=== PATIENT | male | born 1980 | race Caucasian/White ===

== ENCOUNTER 2020-05-10 06:44 | Observation (INO) ==
[2020-05-10] MEDS ORDERED: ONDANSETRON HCL/PF 2 MG/ML VIAL IV ONE ×2 (07:09→07:56)
--- NOTE | 2020-05-10 07:13 | ERNOTE ---
<William Loco - Last Filed: 05/10/20 07:56> Medical Problem HPI - General Chief Complaint: General Assessment Time Seen by Provider: 05/10/20 07:00 Source: patient, family - Exam Limitations: no limitations - Immun/Allergies/Home Medications Immunizations: IMMUNIZATION HX Immunizations Up to Date Yes History of Influenza Vaccine No Hx Pneumococcal Vaccination No Allergies/Adverse Reactions: Allergies morphine Allergy (Severe, Verified 05/10/20 06:53) Shortness of Breath Home Medications: HOME MEDICATIONS NK 05/10/20 [Last Taken Unknown] - History of Present History Narrative: Patient presents with confusion this morning. His states that she tried to wake him up and stated he just wanted to go home. Patient states he has been having a Crohn's flare including abdominal pain, nausea /vomiting, diarrhea and bloody diarrhea for about a month. He does not have insurance and moved here approximately 8 months ago and has not had a physician since he moved here. Patient has used Tagamet, [id number] Gas-X, Tylenol and ibuprofen none of which seemed to help and Tylenol and ibuprofen seem to make it worse. For the past couple of days he has not been able to hold anything down. Timing: getting worse Severity: moderate, severe Modifying Factors - (Worsens): Present: eating Review of Systems - Review of Systems Constitutional: Present: chills, fatigue, malaise. Absent: fever EYE: Absent: vision changes ENT: Absent: nose congestion, nasal drainage Respiratory: Absent: shortness of breath, cough Cardiology: Absent: chest pain Gastrointestinal/Abdominal: Present: See HPI Genitourinary: Present: decreased urinary output Musculoskeletal: Absent: back pain, neck pain Skin: Absent: rash Neurological: Present: dizziness/light-headedness. Absent: numbness, tingling Endocrine: Present: excessive sweating, flushing Medical History (Last Reviewed 05/10/20 @ 07:12 by William Loco DO) Crohn's disease Laceration of arm, left, complicated Surgical History: Surgical History (Last Reviewed 05/10/20 @ 07:12 by William Loco DO) History of cholecystectomy Family History: Family History (Last Reviewed 05/10/20 @ 07:12 by William Loco DO) Other No pertinent family history in first degree relatives Social History: (Last Reviewed 05/10/20 @ 07:12 by William Loco DO) Tobacco: Smoking Status: Never smoker Alcohol: alcohol intake frequency: holiday/special occasion Substance Use: substance use type: does not use Physical Exam - Physical Exam General Appearance: Present: wd/wn, alert, mild distress Head Exam: Present: normal inspection, no evidence of injury Neck: Present: normal inspection, nontender, supple Respiratory: Present: no respiratory distress, no accessory muscle use, chest nontender, lungs clear Cardiovascular/Chest: Present: regular rate, rhythm, no murmur Gastrointestinal/Abdominal: Present: nondistended, soft, tenderness - Bilateral lower quadrants, abnormal bowel sounds - Mildly hyperactive. Absent: guarding, rebound Back Exam: Present: normal inspection, normal range of motion Extremity Exam: Present: normal inspection, normal range of motion, no edema Neurological Exam: Present: alert, oriented, no motor/sensory deficits Skin Exam: Present: normal color, warm/dry Lymphatic Exam: Present: no adenopathy Progress - Results and Orders Patient's Lab Results:: I have reviewed the patient's lab results. - Vital Signs Patient's Vital Signs:: I have reviewed the patient's vital signs. Vital Signs: Vital Signs 05/10/20 06:50 Temperature 36.6 C Pulse Rate 77 Respiratory Rate 16 Blood Pressure 132/90 H O2 Sat by Pulse Oximetry 97 - Progress/Reassessment Chief Complaint: General Assessment - Transfer of Care Physician Sign Out: William Loco Receiving Physician: Emerson Soto Pending Results: CT/MRI results Expected Disposition: Admit Departure Clinical Impression: Colitis, infectious Crohn's colitis Qualifiers: Digestive disease complication type: with rectal bleeding Qualified Code(s): K50.111 - Crohn's disease of large intestine with rectal bleeding - Departure Disposition: Short Term Hospital Inpatient Condition: Fair <Emerson Soto - Last Filed: 05/10/20 11:20> Medical Problem HPI - Narrative Date of Service: 05/10/20 - Immun/Allergies/Home Medications Immunizations: IMMUNIZATION HX Immunizations Up to Date Yes History of Influenza Vaccine No Hx Pneumococcal Vaccination No Medical History (Last Reviewed 05/10/20 @ 07:12 by William Loco DO) Crohn's disease Laceration of arm, left, complicated Surgical History: Surgical History (Last Reviewed 05/10/20 @ 07:12 by William Loco DO) History of cholecystectomy Family History: Family History (Last Reviewed 05/10/20 @ 07:12 by William Loco DO) Other No pertinent family history in first degree relatives Social History: (Last Reviewed 05/10/20 @ 07:12 by William Loco DO) Tobacco: Smoking Status: Never smoker Alcohol: alcohol intake frequency: holiday/special occasion Substance Use: substance use type: does not use Progress - Vital Signs Vital Signs: Vital Signs 05/10/20 06:50 05/10/20 07:30 Temperature 36.6 C Pulse Rate 77 76 Respiratory Rate 16 14 Blood Pressure 132/90 H 124/76 O2 Sat by Pulse Oximetry 97 97 - X-Ray X-Ray #1 X-Ray: abdomen Interpretation: Discd w/ radiologist X-ray Comments: No acute findings - CT/Ultrasound CT/Ultrasound Narrative: CT shows inflammatory bowel disease with some infectious component possible - Progress/Reassessment Progress Note-Subjective: 05/10/20 08:05 Patient remains nauseous and in pain has been medicated awaiting CAT scan is in the progress of drinking contrast patient has not been seen for his Crohn's in 2 years due to economic reasons Plan - Plan Plan: Considering the patient's white count of 15,000 and the findings of CAT scan will admit for antibiotic coverage and pain medication Patient to be admitted to Dr Nguyễn of service
[2020-05-10 07:27] LABS: Hematocrit 41.2 % (42.0-52.0); Hemoglobin 13.8 gm/dL (13.5-18.0); Mean Cell Volume 90.4 fl (78-100); Mean Corpuscular Hemoglobin 30.3 pg (27-31); Mean Corpuscular Hgb Conc 33.5 g/dl (32-36); Mean Platelet Volume 8.9 fl (8-11.3); Neutrophil # 12.5 K/mm3 (1.3-6.0); Neutrophil % 82.9 % (42-75.0); Platelet Count 357 K/mm3 (150-450); Red Blood Count 4.56 M/mm3 (4.7-6.0); Red Cell Distribution Width 12.8 % (11.5-14.0)
[2020-05-10 07:42] LABS: Albumin * 3.5 gm/dl (3.4-5.0); Anion Gap 12.2 mmol/L (6.8-13.8); BUN/Creatinine Ratio 15.9 (9.0-21.6); Bilirubin, Total 0.2 mg/dL (0.0-1.1); Ca. Corrected For Albumin 9.4 mg/dL (8.4-10.2); Calcium * 9.3 mg/dL (7.9-10.9); Carbon Dioxide 26.6 mmol/L (24-32.6); Potassium 3.8 mmol/L (3.4-4.6); Total Protein 7.4 gm/dL (6.2-8.2)
[2020-05-10] MEDS ORDERED: DIATRIZOATE MEGLUMINE, SODIUM 30 ML BTL PO ONE (07:43)
[2020-05-10] MEDS ORDERED: HYDROmorphone HCL 1 MG/ML DISP.SYRIN IV ONE ×2 (07:56→10:56)
[2020-05-10] MEDS ORDERED: METHYLPREDNISOLONE SOD SUCC/PF 125 MG/2 ML VIAL IV ONE (08:15)
[2020-05-10] MEDS ORDERED: metroNIDAZOLE/SODIUM CHLORIDE 500 MG/100 ML BAG IV SCH ×2 (11:00→19:00)
[2020-05-10] MEDS ORDERED: CIPROFLOXACIN IN 5 % DEXTROSE 400 MG/200 ML BAG IV SCH (11:00)
--- NOTE | 2020-05-10 13:16 | HP ---
Chief Complaint - Chief Complaint Date of Service: 05/10/20 Time of Service: 11:41 Chief Complaint: Abdominal pain, blood in stool, nausea vomiting x1 month History of Present Illness: 39-year-old male with past medical history of Crohn's disease presents with complaints of lower abdominal cramping, nausea, vomiting, decreased appetite, bloody stools for the past 1 month that has been progressively worsening. He does not have a primary care physician recently moved here from [place]. He has not had a physician for about 3 years due to insurance issues. He has had Crohn's disease for the past 15 years and has never had a flare this bad. In the emergency department he was found to have stable vitals, WBCs of 15,000, elevated alk phos at 195 elevated ALT at 76, CT abdomen pelvis showed colitis of the left hemicolon, ileus and hepatomegaly, no bowel obstruction or free air. He was started on Flagyl and Cipro in the emergency room. He also received a dose of Solu-Medrol 125 mg IV. He is being admitted for exacerbation of Crohn's colitis. Medical History (Last Reviewed 05/10/20 @ 13:34 by Roly See RN) Crohn's disease Laceration of arm, left, complicated Surgical History: Surgical History (Last Reviewed 05/10/20 @ 13:34 by Roly See RN) History of cholecystectomy Family History: Family History (Last Reviewed 05/10/20 @ 13:34 by Roly See RN) Other No pertinent family history in first degree relatives Social History: (Last Reviewed 05/10/20 @ 13:35 by Roly See, RN) Tobacco: Smoking Status: Never smoker Alcohol: alcohol intake frequency: holiday/special occasion Substance Use: substance use type: does not use Review Of Systems (GEN) - Review of Systems Generalized/Overall Review: Absent: Chills, Fever Respiratory: Absent: Shortness of Breath Cardiac: Absent: Chest Pain Abdominal: Present: Nausea, Vomiting, Abdominal Pain - Lower abdomen, Bright blood from rectum Misc: All systems neg except as marked Immunizations: IMMUNIZATION HX Immunizations Up to Date Yes History of Influenza Vaccine No Hx Pneumococcal Vaccination No Allergies/Adverse Reactions: Allergies Allergy/AdvReac Type Severity Reaction Status Date / Time morphine Allergy Severe Shortness Verified 05/10/20 06:53 of Breath Home Medications: HOME MEDICATIONS Cimetidine [Tagamet Hb] 2 tab PO 1700 05/10/20 [Last Taken 05/09/20 17:00] Multivitamin [Poly-Vitamin] 2 ea PO BID 05/10/20 [Last Taken 05/09/20 09:30] Simethicone [Gas-X] 2 tab PO DAILY 05/10/20 [Last Taken 05/09/20 09:30] Exam - Exam Vital Signs: Vital Signs - Last Taken Temp 36.6 C 05/10/20 12:40 Pulse 68 05/10/20 12:40 Resp 14 05/10/20 12:40 BP 108/58 05/10/20 12:40 Pulse Ox 96 05/10/20 12:40 Constitutional: Present: Alert, Cooperative, Well developed, Well nourished, No distress ENT Exam: Present: hearing grossly normal, moist mucous membranes Eye Exam: bilateral eye: normal inspection, PERRL, EOMI Neck: Present: non-tender, supple. Absent: lymphadenopathy (R), lymphadenopathy (L) Back Exam: Present: no CVA tenderness, no vertebral tenderness Respiratory: Present: lungs clear, no respiratory distress, no accessory muscle use, No wheezing. Absent: crackles, rhonchi Cardiovascular/Chest: Present: normal peripheral pulses, regular rate, rhythm, no edema, no murmur Peripheral Pulses: dorsalis-pedis (R): 1+, dorsalis-pedis (L): 1+ Abdomen: Present: Normal bowel sounds, soft, nontender Extremity: Present: normal inspection, no pedal edema Skin Exam: Present: normal color, warm/dry Neurologic: Present: alert, normal mood/affect Appearance: Present: appropriate appearance Eye contact: Present: cooperative Thoughts: Present: normal thought pattern, normal mood /affect Diagnostic Studies: Abnormal Lab Results 05/10/20 05/10/20 Range/Units 07:14 07:14 WBC 15.0 H (4.0-10.5) K/mm3 RBC 4.56 L (4.7-6.0) M/mm3 Hct 41.2 L (42.0-52.0) % Immature Gran % (Auto) 0.50 H (0.001-0.429) % Immature Gran # (Auto) 0.07 H (0.000-0.0310) K/mm3 Neutrophils % 82.9 H (42-75.0) % Lymphocytes % 9.1 L (20-51) % Neutrophils # 12.5 H (1.3-6.0) K/mm3 Lymphocytes # 1.37 L (1.5-3.5) k/mm3 Random Glucose 128 H (70-110) mg/dL ALT 76 H (19-67) U/L Alkaline Phosphatase 195 H (50-170) U/L Laboratory Results WBC 15.0 K/mm3 (4.0-10.5) H 05/10/20 07:14 RBC 4.56 M/mm3 (4.7-6.0) L 05/10/20 07:14 Hgb 13.8 gm/dL (13.5-18.0) 05/10/20 07:14 Hct 41.2 % (42.0-52.0) L 05/10/20 07:14 MCV 90.4 fl (78-100) 05/10/20 07:14 MCH 30.3 pg (27-31) 05/10/20 07:14 MCHC 33.5 g/dl (32-36) 05/10/20 07:14 RDW 12.8 % (11.5-14.0) 05/10/20 07:14 Plt Count 357 K/mm3 (150-450) 05/10/20 07:14 MPV 8.9 fl (8-11.3) 05/10/20 07:14 Immature Gran % (Auto) 0.50 % (0.001-0.429) H 05/10/20 07:14 Immature Gran # (Auto) 0.07 K/mm3 (0.000-0.0310) H 05/10/20 07:14 Neutrophils % 82.9 % (42-75.0) H 05/10/20 07:14 Lymphocytes % 9.1 % (20-51) L 05/10/20 07:14 Monocytes % 5.3 % (0.0-9) 05/10/20 07:14 Eosinophils % 1.7 % (0.0-3.0) 05/10/20 07:14 Basophils % 0.5 % (0.0-1.0) 05/10/20 07:14 Nucleated RBC % 0.0 k/mm3 (0-1) 05/10/20 07:14 Neutrophils # 12.5 K/mm3 (1.3-6.0) H 05/10/20 07:14 Lymphocytes # 1.37 k/mm3 (1.5-3.5) L 05/10/20 07:14 Monocytes # 0.8 k/mm3 (0.0-1.0) 05/10/20 07:14 Eosinophils # 0.3 k/mm3 (0.0-0.7) 05/10/20 07:14 Absolute Basophils 0.1 k/mm3 (0.0-0.1) 05/10/20 07:14 Sodium 137 mmol/L (132-142) 05/10/20 07:14 Plasma Sodium 137 mmol/L (130-142) 05/10/20 07:14 Potassium 3.8 mmol/L (3.4-4.6) 05/10/20 07:14 Chloride 102 mmol/L (97-106) 05/10/20 07:14 Carbon Dioxide 26.6 mmol/L (24-32.6) 05/10/20 07:14 Anion Gap 12.2 mmol/L (6.8-13.8) 05/10/20 07:14 BUN 20 mg/dL (6-23) D 05/10/20 07:14 Creatinine 1.26 mg/dL (0.4-1.4) 05/10/20 07:14 Est GFR (Non-Af Amer) 68 mL/min (60-130) 05/10/20 07:14 BUN/Creatinine Ratio 15.9 (9.0-21.6) 05/10/20 07:14 Random Glucose 128 mg/dL (70-110) H 05/10/20 07:14 Lactic Acid, Venous 1.1 mmol/L (0.4-2.0) 05/10/20 07:14 Calcium 9.3 mg/dL (7.9-10.9) 05/10/20 07:14 Calcium Adj for Albumin 9.4 mg/dL (8.4-10.2) 05/10/20 07:14 Total Bilirubin 0.2 mg/dL (0.0-1.1) 05/10/20 07:14 AST 42 U/L (0-48) 05/10/20 07:14 ALT 76 U/L (19-67) H 05/10/20 07:14 Alkaline Phosphatase 195 U/L (50-170) H 05/10/20 07:14 Total Protein 7.4 gm/dL (6.2-8.2) 05/10/20 07:14 Albumin 3.5 gm/dl (3.4-5.0) 05/10/20 07:14 Amylase 73 U/L (25-115) 05/10/20 07:14 Lipase 372 U/L (73-393) 05/10/20 07:14 Assessment/Plan - Narrative Narrative: 39-year-old male with past medical history of Crohn's disease presents with complaints of lower abdominal cramping, nausea, vomiting, decreased appetite, bloody stools for the past 1 month that has been progressively worsening. He does not have a primary care physician recently moved here from [place]. He has not had a physician for about 3 years due to insurance issues. He has had Crohn's disease for the past 15 years and has never had a flare this bad. In the emergency department he was found to have stable vitals, WBCs of 15,000, elevated alk phos at 195 elevated ALT at 76, CT abdomen pelvis showed colitis of the left hemicolon, ileus and hepatomegaly, no bowel obstruction or free air. He was started on Flagyl and Cipro in the emergency room. He also received a dose of Solu-Medrol 125 mg IV. He is being admitted for exacerbation of Crohn's colitis. Plan #1 Dilaudid for pain management #2 Metoclopramide for nausea and vomiting #3 continue Solu-Medrol 40 mg IV daily #4 advance diet as tolerated #5 CBC and CMP in the morning - Assessment/Plan (1) Exacerbation of Crohn's disease Problem: Acute (2) Nausea & vomiting Problem: Acute (3) Abdominal pain Problem: Acute (4) Crohn's colitis Problem: Acute Qualifiers: Digestive disease complication type: with rectal bleeding Qualified Code(s): K50.111 - Crohn's disease of large intestine with rectal bleeding
[2020-05-10] MEDS ORDERED: HYDROmorphone HCL 1 MG/ML DISP.SYRIN ONE (16:45)
[2020-05-10] MEDS: HYDROmorphone HCL 1 MG/ML DISP.SYRIN IV PRN ×2 (16:56→21:02)
[2020-05-10] MEDS: METOCLOPRAMIDE HCL 5 MG/ML VIAL IV PRN ×2 (16:57→23:33)
[2020-05-10 17:22] LABS: Urine Bilirubin Negative (NEGATIVE); Urine Blood Negative /ul (NEGATIVE); Urine Ketone Negative (NEGATIVE); Urine Nitrite Negative (NEGATIVE); Urine Protein 15 mg/dL (NEGATIVE); Urine Specific Gravity 1.015 SP.GR. (1.005-1.030); Urine Urobilinogen Normal (NORMAL); Urine pH 5.5 pH (5.0-7.0)
[2020-05-10 17:43] LABS: Urine Appearance Clear (CLEAR); Urine Bacteria TRACE; Urine Color Yellow; Urine RBC TRACE /hpf (0-5); Urine WBC TRACE /hpf (0-5)
[2020-05-10] MEDS ORDERED: NORMAL SALINE 1,000 ML IV PRN (19:34)
[2020-05-10] MEDS: metroNIDAZOLE/SODIUM CHLORIDE 500 MG/100 ML BAG IV SCH (20:20)
[2020-05-11] MEDS: CIPROFLOXACIN IN 5 % DEXTROSE 400 MG/200 ML BAG IV SCH ×2 (01:06→14:00)
[2020-05-11] MEDS: HYDROmorphone HCL 1 MG/ML DISP.SYRIN IV PRN ×2 (02:42→07:29)
[2020-05-11] MEDS: metroNIDAZOLE/SODIUM CHLORIDE 500 MG/100 ML BAG IV SCH ×2 (02:47→11:23)
[2020-05-11 06:20] LABS: Hematocrit 37.1 % (42.0-52.0); Hemoglobin 12.3 gm/dL (13.5-18.0); Mean Cell Volume 90.3 fl (78-100); Mean Corpuscular Hemoglobin 29.9 pg (27-31); Mean Corpuscular Hgb Conc 33.2 g/dl (32-36); Mean Platelet Volume 9.2 fl (8-11.3); Neutrophil # 12.3 K/mm3 (1.3-6.0); Neutrophil % 86.8 % (42-75.0); Platelet Count 308 K/mm3 (150-450); Red Blood Count 4.11 M/mm3 (4.7-6.0); Red Cell Distribution Width 12.8 % (11.5-14.0); White Blood Count 14.1 K/mm3 (4.0-10.5)
[2020-05-11 06:32] LABS: Albumin * 3.1 gm/dl (3.4-5.0); Anion Gap 10.7 mmol/L (6.8-13.8); BUN/Creatinine Ratio 9.6 (9.0-21.6); Bilirubin, Total 0.3 mg/dL (0.0-1.1); Ca. Corrected For Albumin 9.2 mg/dL (8.4-10.2); Calcium * 8.8 mg/dL (7.9-10.9); Carbon Dioxide 28.4 mmol/L (24-32.6); Potassium 4.1 mmol/L (3.4-4.6); Total Protein 6.6 gm/dL (6.2-8.2)
[2020-05-11] MEDS: METOCLOPRAMIDE HCL 5 MG/ML VIAL IV PRN (07:30)
[2020-05-11] MEDS ORDERED: METHYLPREDNISOLONE SOD SUCC/PF 40 MG/ML VIAL IV SCH (09:00)
[2020-05-11] MEDS ORDERED: PANTOPRAZOLE SODIUM 40 MG TABLET.EC PO SCH (09:26)
--- NOTE | 2020-05-11 09:29 | PN ---
Subjective - Date and Time Seen Date: 05/11/20 Time: 09:23 Objective - Vitals Vitals: Last Vital Signs Temp 36.8 C 05/11/20 07:00 Pulse 72 05/11/20 07:00 Resp 14 05/11/20 07:00 BP 111/59 05/11/20 07:00 Pulse Ox 96 05/11/20 07:00 - Abnormal Lab Findings Abnormal Lab Findings: Abnormal Lab Results 05/10/20 05/11/20 05/11/20 Range/Units 17:15 06:00 06:00 WBC 14.1 H (4.0-10.5) K/mm3 RBC 4.11 L (4.7-6.0) M/mm3 Hgb 12.3 L (13.5-18.0) gm/dL Hct 37.1 L (42.0-52.0) % Immature Gran % (Auto) 0.60 H (0.001-0.429) % Immature Gran # (Auto) 0.09 H (0.000-0.0310) K/mm3 Neutrophils % 86.8 H (42-75.0) % Lymphocytes % 6.8 L (20-51) % Neutrophils # 12.3 H (1.3-6.0) K/mm3 Lymphocytes # 0.96 L (1.5-3.5) k/mm3 Random Glucose 134 H (70-110) mg/dL Albumin 3.1 L (3.4-5.0) gm/dl Urine Protein 15 H (NEGATIVE) mg/dL Assessment/Plan - Problems/Diagnosis (1) Exacerbation of Crohn's disease Problem: Acute (2) Nausea & vomiting Problem: Acute (3) Abdominal pain Problem: Acute (4) Crohn's colitis Problem: Acute Qualifiers: Digestive disease complication type: with rectal bleeding Qualified Code(s): K50.111 - Crohn's disease of large intestine with rectal bleeding
[2020-05-11] MEDS ORDERED: oxyCODONE HCL/ACETAMINOPHEN 1 TAB TABLET PO PRN (10:25)
--- NOTE | 2020-05-11 14:32 | DS ---
(1) Exacerbation of Crohn's disease Problem: Acute (2) Nausea & vomiting Problem: Acute (3) Crohn's colitis Problem: Acute Qualifiers: Digestive disease complication type: with rectal bleeding Qualified Code(s): K50.111 - Crohn's disease of large intestine with rectal bleeding (4) Intractable lower abdominal pain Problem: Acute (5) Bloody stools Problem: Acute Hospital Course: 39-year-old male with past medical history of Crohn's disease presents with complaints of lower abdominal cramping, nausea, vomiting, decreased appetite, bloody stools for the past 1 month that has been progressively worsening. He does not have a primary care physician recently moved here from [place]. He has not had a physician for about 3 years due to insurance issues. He has had Crohn's disease for the past 15 years and has never had a flare this bad. In the emergency department he was found to have stable vitals, WBCs of 15,000, elevated alk phos at 195 elevated ALT at 76, CT abdomen pelvis showed colitis of the left hemicolon, ileus and hepatomegaly, no bowel obstruction or free air. He was started on Flagyl and Cipro in the emergency room. He also received a dose of Solu-Medrol 125 mg IV. He is being admitted for exacerbation of Crohn's colitis. Patient symptoms improved and he was able to tolerate solid food. He had no more bloody bowel movements, nausea or vomiting. He is tolerating oral pain medications and is stable to be discharged home today. I will send him home on a budesonide taper, ciprofloxacin, metronidazole and as needed Percocet. Start budesonide 9 mg daily for 4 weeks. Then decrease to 6 mg daily for 2 weeks, then decrease to 3 mg daily for 2 weeks, then stop. He will need to follow-up with a primary care physician within 1 to 2 weeks of discharge. Procedures Performed: none Results and Findings: Lab Pending Results 05/10/20 07:14: WBC 15.0 H, RBC 4.56 L, Hgb 13.8, Hct 41.2 L, MCV 90.4, MCH 30.3, MCHC 33.5, RDW 12.8, Plt Count 357, MPV 8.9, Immature Gran % (Auto) 0.50 H, Immature Gran # (Auto) 0.07 H, Neutrophils % 82.9 H, Lymphocytes % 9.1 L, Monocytes % 5.3, Eosinophils % 1.7, Basophils % 0.5, Nucleated RBC % 0.0, Neutrophils # 12.5 H, Lymphocytes # 1.37 L, Monocytes # 0.8, Eosinophils # 0.3, Absolute Basophils 0.1 05/10/20 07:14: Sodium 137, Plasma Sodium 137, Potassium 3.8, Chloride 102, Carbon Dioxide 26.6, Anion Gap 12.2, BUN 20 D, Creatinine 1.26, Est GFR (Non-Af Amer) 68, BUN/Creatinine Ratio 15.9, Random Glucose 128 H, Calcium 9.3, Calcium Adj for Albumin 9.4, Total Bilirubin 0.2, AST 42, ALT 76 H, Alkaline Phosphatase 195 H, Total Protein 7.4, Albumin 3.5, Amylase 73, Lipase 372 05/10/20 07:14: Lactic Acid, Venous 1.1 05/10/20 17:15: Urine Color Yellow, Urine Appearance Clear, Urine pH 5.5, Ur Specific [place] 1.015, Urine Protein 15 H, Urine Glucose (UA) Negative, Urine Ketones Negative, Urine Blood Negative, Urine Nitrate Negative, Urine Bilirubin Negative, Prot Sulfosalicylic Acd Negative, Urine Urobilinogen Normal, Ur Leukocyte Esterase Negative, Urine RBC Trace, Urine WBC Trace, Ur Epithelial Cells Trace, Urine Bacteria Trace, Urine Culture Comments No culture indicated 05/11/20 06:00: WBC 14.1 H, RBC 4.11 L, Hgb 12.3 L, Hct 37.1 L, MCV 90.3, MCH 29.9, MCHC 33.2, RDW 12.8, Plt Count 308, MPV 9.2, Immature Gran % (Auto) 0.60 H, Immature Gran # (Auto) 0.09 H, Neutrophils % 86.8 H, Lymphocytes % 6.8 L, Monocytes % 5.7, Eosinophils % 0.0, Basophils % 0.1, Nucleated RBC % 0.0, Neutrophils # 12.3 H, Lymphocytes # 0.96 L, Monocytes # 0.8, Eosinophils # 0.0, Absolute Basophils 0.0 05/11/20 06:00: Sodium 139, Plasma Sodium 140, Potassium 4.1, Chloride 104, Carbon Dioxide 28.4, Anion Gap 10.7, BUN 12, Creatinine 1.25, Est GFR (Non-Af Amer) 69, BUN/Creatinine Ratio 9.6, Random Glucose 134 H, Calcium 8.8, Calcium Adj for Albumin 9.2, Total Bilirubin 0.3, AST 25, ALT 62, Alkaline Phosphatase 166, Total Protein 6.6, Albumin 3.1 L Discharge Location: Home Disposition: Home self-care Condition: Fair Discharge Activity: Activity as tolerated Discharge Diet: General/regular food Prescriptions (Any new or edited meds): Budesonide [Budesonide ER] 9 mg PO DAILY #28 tabdr...er Transmission Status: Pending to [place], [place] Ciprofloxacin HCl 500 mg PO BID #6 tab Transmission Status: Pending to [place], [place] Budesonide [Entocort EC] 3 mg PO DAILY #42 capdr...er Transmission Status: Pending to [place], [place] metroNIDAZOLE [Metronidazole] 500 mg PO TID #9 tab Transmission Status: Pending to [place], [place] oxyCODONE HCL/ACETAMINOPHEN [Percocet 5 MG/325 MG] 1 tab PO Q6H PRN #16 tab PRN Reason: Moderate Pain (Pain Scale 4-6) Transmission Status: Received by [place], [place] Pantoprazole Sodium [Protonix] 40 mg PO DAILY@0700 #30 tablet. Transmission Status: Pending to [place], [place] Complete Home Medications List: Complete Home Medication List: Multivitamin [Poly-Vitamin] 2 ea PO BID 05/10/20 Simethicone [Gas-X] 2 tab PO DAILY 05/10/20 Budesonide [Budesonide ER] 9 mg PO DAILY #28 tabdr...er 05/11/20 Budesonide [Entocort EC] 3 mg PO DAILY #42 capdr...er 05/11/20 Ciprofloxacin HCl 500 mg PO BID #6 tab 05/11/20 Pantoprazole Sodium [Protonix] 40 mg PO DAILY@0700 #30 tablet. 05/11/20 metroNIDAZOLE [Metronidazole] 500 mg PO TID #9 tab 05/11/20 oxyCODONE HCL/ACETAMINOPHEN [Percocet 5 MG/325 MG] 1 tab PO Q6H PRN #16 tab 05/11/20
[2020-05-11 15:40] VITALS: BP 130/67
== END 2020-05-11 15:30 | disposition home or self-care (01) ==
LOC: ER 06:44 → MS 06:44
PROVIDERS: ADMIT Internal Medicine; ATTEND Internal Medicine
CPT/HCPCS: 36415; 74019; 74020; 74177; 80053; 81001; 82150; 83605; 83690; 85025; 96365; 96366; 96367; 96375; 96376; 99284; 99285; G0378; J2405; Q9963; Q9967